=== PATIENT | male | born 1990 | race Caucasian/White ===

== ENCOUNTER 2021-01-24 21:42 | Inpatient (IN) | payer OTHER ==
[~2021-01-24] VITALS: Ht 180.3 cm; Wt 79.4 kg
--- NOTE | 2021-01-24 22:25 | NUR ---
PT BIBS C/O HEMATURIA AND BILAT FLANK PAIN X 1.5 HRS AGO, PT ADMITS TO HX OF KIDNEY STONES. AAO X 4, BREATHING EVEN AND UNLABORED, SATURATION 99% ON ROOM AIR, NO SIGN OF ACUTE DISTRESS. SEEN AND EXAMINED BY DR REBOLLAR. PT ATTACHED TO MONITOR AND PULSE OX. WILL CONTINUE TO MONITOR.
[2021-01-24] MEDS ORDERED: IV NS 0.9% 1,000 ML BAG IV ONE (22:30)
[2021-01-24] MEDS ORDERED: KETOROLAC TROMETHAMINE INJ 30 MG/ML VIAL IV ONE (22:30)
[2021-01-24] MEDS ORDERED: ONDANSETRON HCL/PF 4 MG/2 ML VIAL IVP ONE (22:30)
--- NOTE | 2021-01-24 22:30 | NUR ---
IV LINE ESTABLISHED AT RAC 20G, BLOOD DRAWN AND SENT TO LAB
[2021-01-24] MEDS ORDERED: KETOROLAC TROMETHAMINE 15 MG/ML VIAL ONE (22:44)
[2021-01-24] MEDS ORDERED: ONDANSETRON HCL/PF 4 MG/2 ML VIAL ONE (22:45)
[2021-01-24 22:58] LABS: BASOPHILS # (AUTO) 0.1 K/uL (0.0-0.2); BASOPHILS % (AUTO) 0.9 % (0.0-2.0); EOSINOPHILS % (AUTO) 1.2 % (0.0-6.0); HEMATOCRIT 47 % (39-51); HEMOGLOBIN 15.7 g/dL (13.5-17.5); LYMPHOCYTES # (AUTO) 2.9 K/uL (0.8-4.8); LYMPHOCYTES % (AUTO) 28.3 % (20.0-44.0); MEAN CORPUSCULAR HGB CONC 34 g/dl (31.0-36.0); MEAN CORPUSCULAR VOLUME 91 fL (80-96); MONOCYTES # (AUTO) 0.9 K/uL (0.1-1.30); NEUTROPHILS # (AUTO) 6.1 K/uL (1.8-8.9); NEUTROPHILS % (AUTO) 60.6 % (43.0-81.0); PLATELET COUNT (AUTO) 222 K/uL (150-450); WHITE BLOOD COUNT (AUTO) 10.1 K/uL (4.3-11.0)
--- NOTE | 2021-01-24 23:00 | NUR ---
PT TAKEN TO RADIOLOGY FOR CT ABDOMEN/PELVIS
[2021-01-24 23:02] LABS: BILIRUBIN,URINE Negative (NEGATIVE); COLOR,URINE DARK YELLOW (YELLOW); LEUKOCYTE ESTERASE ,URINE Negative (NEGATIVE); NITRITE, URINE Negative (NEGATIVE); PROTEIN,URINE Trace mg/dl (NEGATIVE); UGLUCOSE Negative (NEGATIVE)
[2021-01-24 23:07] LABS: BACTERIA,URINE Rare /HPF (None Seen); SQUAMOUS EPITHELIAL CELL,UR Few /HPF (None Seen); WBC,URINE NONE SEEN /HPF (0-3)
--- NOTE | 2021-01-24 23:08 | NUR ---
PT BACK TO BED [address] ABD PELVIS
[2021-01-24 23:14] LABS: CALCIUM, SERUM 8.3 mg/dL (8.5-10.1); CREATININE 1.2 mg/dL (0.6-1.3); POTASSIUM 3.7 mmol/L (3.5-5.1)
[2021-01-24 23:27] LABS: BILIRUBIN,DIRECT 0.1 mg/dL (0.0-0.2); BILIRUBIN,TOTAL 0.4 mg/dL (0.2-1.0); TOTAL PROTEIN, SERUM 7.4 g/dL (6.4-8.2)
--- NOTE | 2021-01-24 23:35 | NUR ---
CT ABD/PELVIS RESULTED, DR REBOLLAR AT BEDSIDE AND EXPLAINED PLAN FOR SX TOMORROW. AWAITING ADMISSION TO UNIT.
[2021-01-25] MEDS ORDERED: PIPERACILLIN /TAZOBACTAM 3.375 G VIAL IV ONE ×2 (00:01→06:13)
[2021-01-25] MEDS ORDERED: IV D5/0.45 NACL 1,000 ML IV PRN (00:30)
[2021-01-25] MEDS ORDERED: ONDANSETRON HCL/PF 4 MG/2 ML VIAL IVP PRN (00:30)
[2021-01-25] MEDS ORDERED: MAGNESIUM HYDROXIDE 30 ML UDC PO PRN (00:30)
[2021-01-25] MEDS ORDERED: MORPHINE SULFATE INJ 2 MG/ML DISP.SYRIN IV PRN (00:30)
[2021-01-25] MEDS ORDERED: Z GUARD REMEDY 2 OZ OINT TP PRN (00:30)
[2021-01-25] MEDS ORDERED: MAG HYDROX/AL HYDROX/SIMETH 30 ML UDC PO PRN (00:30)
[2021-01-25] MEDS ORDERED: ACETAMINOPHEN 325 MG TABLET PO PRN (00:30)
--- NOTE | 2021-01-25 01:02 | NUR ---
MS 324-2
--- NOTE | 2021-01-25 02:06 | NUR ---
REPORT GIVEN TO JUAN MARTINEZ FOR [facility].
--- NOTE | 2021-01-25 03:27 | NUR ---
PT TRANSFERRED TO [facility] 324-2 VIA [facility].
--- NOTE | 2021-01-25 03:30 | NUR ---
MS RN OPENING NOTES: RECEIVED PATIENT FROM ER VIA GURNEY AWAKE, VERBALLY RESPONSIVE, NO COMPLAIN OF PAIN AND DISCOMFORT AT ANYTIME, PATIENT IS A/O X4 AND ABLE TO EXPRESS NEEDS, NPO FOR POSSIBLE APPENDECTOMY, WITH RAC #20, SKIN ASSESSMENT DONE, NO SKIN ISSUES OBSERVED, ITEM INVENTORY DONE AND SIGNED, PATIENT WAS PLACE IN BED ON LOW POSITION, CALL LIGHTS WITHIN REACH, ORIENTED TO PLACE, KEPT CLEn ND DRY, ALL NEEDS MET, WILL CONTINUE TO MONITOR.
[2021-01-25 04:41] VITALS: BP 141/74
[2021-01-25] MEDS ORDERED: PIPERACILLIN /TAZOBACTAM 3.375 G in IV D5W 50 ML IV ONE ×3 (06:00→06:30)
[2021-01-25 06:26] LABS: BASOPHILS % (AUTO) 0.5 % (0.0-2.0); EOSINOPHILS % (AUTO) 1.1 % (0.0-6.0); HEMATOCRIT 43 % (39-51); HEMOGLOBIN 14.9 g/dL (13.5-17.5); LYMPHOCYTES % (AUTO) 23.4 % (20.0-44.0); MEAN CORPUSCULAR HGB CONC 34 g/dl (31.0-36.0); MEAN CORPUSCULAR VOLUME 91 fL (80-96); MONOCYTES # (AUTO) 0.7 K/uL (0.1-1.30); MONOCYTES % (AUTO) 8.3 % (2.0-12.0); NEUTROPHILS # (AUTO) 5.8 K/uL (1.8-8.9); NEUTROPHILS % (AUTO) 66.7 % (43.0-81.0); PLATELET COUNT (AUTO) 193 K/uL (150-450); RED BLOOD CELL COUNT(AUTO) 4.76 MIL/uL (4.5-6.0); WHITE BLOOD COUNT (AUTO) 8.7 K/uL (4.3-11.0)
[2021-01-25 07:09] LABS: CALCIUM, SERUM 8.2 mg/dL (8.5-10.1); CREATININE 1.3 mg/dL (0.6-1.3); MAGNESIUM 2.2 mg/dL (1.8-2.4); PHOSPHORUS 3.9 mg/dL (2.5-4.9); POTASSIUM 4.2 mmol/L (3.5-5.1)
[2021-01-25 07:23] LABS: THYROID STIMULATING HORMONE 1.55 uIU/mL (0.358-3.74)
--- NOTE | 2021-01-25 07:48 | NUR ---
RN NOTES: DUPLICATE GIVEN ALREADY
--- NOTE | 2021-01-25 07:51 | NUR ---
MS RN CLOSING NOTES: PATIENT SLEEP IN BED COMFORTABLY, AROUSABLE TO STIMULI, BED IN LOW POSITIO, CALL LIGHTS WITHIN REACH, NPO FOR POSSIBLE SURGERY PATIENT KEPT CLEAN AND DRY ,ALL NEEDS MET, WILL CONTINUE TO MONITOR.
--- NOTE | 2021-01-25 08:00 | NUR ---
RN OPENING NOTE PT AWAKE IN BED RESTING. ON RA WITH NO SOB OR RESPIRATORY DISTRESS PRESENT. A/O X4 AND PORTUGUES[place] SPEAKING. NO COMPLAINT OR NAUSEA OR PAIN AT THIS TIME. NO SWITCH FOREMAN PRESENT. NO EDEMA PRESENT. SELF AMBULATORY WITH BATHROOM PRIVILEGES. SKIN IS INTACT. IV PRESENT ON R AC 20G AND FLUSHES WELL. LABS AND ORDERS REVIEWED. SAFETY MEASURES IN PLACE. SIDE RAILS RAISED. BED LOWERED. CALL LIGHT WITHIN REACH. WILL CONTINUE TO MONITOR.
[2021-01-25] MEDS ORDERED: PANTOPRAZOLE 40 MG VIAL IV SCH (09:00)
[2021-01-25] MEDS ORDERED: ANESTHESIA TRAY IN PYXIS 1 EA TRAY MC ONE (09:08)
[2021-01-25] MEDS ORDERED: BUPIVACAINE MPF 0.5% W/EPI INJ 30 ML VIAL ONE (09:08)
[2021-01-25] MEDS ORDERED: MIDAZOLAM HCL 2 MG/2ML VIAL ONE (09:44)
[2021-01-25] MEDS ORDERED: FENTANYL PF 250MCG/5ML AMPUL ONE (09:44)
[2021-01-25] MEDS ORDERED: ROCURONIUM BROMIDE 50 MG/5 ML ONE (09:45)
[2021-01-25] MEDS ORDERED: PIPERACILLIN /TAZOBACTAM 3.375 G in IV D5W 50 ML IV SCH (12:00)
[2021-01-25] MEDS ORDERED: AMOX-430 PO (12:15)
[2021-01-25] MEDS ORDERED: HYDROCODONE/APAP 5/325MG TABLET PO PRN (13:00)
[2021-01-25] MEDS ORDERED: PIPERACILLIN /TAZOBACTAM 3.375 G in IV D5W 100 ML IV SCH (13:00)
--- NOTE | 2021-01-25 13:11 | NUR ---
RN NOTE PT REFUSED ZOSYN, WANTS TO GO HOME RATHER THAN WAIT FOR INFUSION. EDUCATED ON RISKS/BENEFITS OF REFUSING MEDICATION. WILL BE DISCHARGED TODAY.
--- NOTE | 2021-01-25 13:23 | NUR ---
CHIEF INFORMATICS OFFICER NOTE PT DISCHARGED HOME VIA PRIVATE CAR ACCOMPANIED BY SIGNIFICANT OTHER. ID BAND AND IV LINES REMOVED. SKIN IS INTACT. BELONGINGS CHECKED AND GIVEN TO PT. EXITCARE EDUCATION UTILIZED AND EDUCATION GIVEN TO PT. F/U WITH PCP AND DR PENA IN 1 WEEK. PRESCRIPTIONS GIVEN TO PT, MEDICINE EDUCATION GIVEN TO PT. ACCOMPANIED BY STAFF MEMBER OUTSIDE OF HOSPITAL.
== END 2021-01-25 13:20 | disposition home or self-care (01) | DRG 343 ==
LOC: ER 21:42 → MED 01-25 01:20
PROVIDERS: ADMIT Registered Nurse; ATTEND Hospitalist
PROC: 0DTJ4ZZ Resection of Appendix, Percutaneous Endoscopic Approach (ICD-10-PCS; principal; 2021-01-25)
DX: K35.80 Unspecified acute appendicitis (principal); Z20.822 Contact with and (suspected) exposure to COVID-19; Z87.442 Personal history of urinary calculi
CPT/HCPCS: 36415; 80048-TC; 80061-TC; 80076-TC; 81001; 83690-TC; 83735-TC; 84100-TC; 84443-TC; 85025-TC; 86850-TC; 87040-TC; 87081-TC; C9113; C9803; G0378; J0690; J1885; J2250; J2405; J2543; J2704; J2765; J3010; J3490; J7030; J7060

== ENCOUNTER 2023-02-13 20:29 | Emergency (ER) | payer OTHER ==
[~2023-02-13] VITALS: Ht 180.3 cm; Wt 81.6 kg
[~2023-02-13 20:29] MED LIST: AMOX-430 PO
[2023-02-13] MEDS ORDERED: AMOX-430 PO (21:05)
[2023-02-13] MEDS ORDERED: TDAP [DIPH/PERTUSSIS/TET] 0.5 ML VIAL IM ONE ×2 (21:08→21:30)
[2023-02-13] MEDS ORDERED: AMOX/CLAVULANATE 875 MG TABLET ONE (21:08)
[2023-02-13 21:22] VITALS: BP 115/60; TEMP 98.5; O2SAT 97
[2023-02-13] MEDS ORDERED: AMOX/CLAVULANATE 875 MG TABLET PO ONE (21:30)
== END 2023-02-13 21:22 | disposition home or self-care (01) ==
LOC: ER 20:31
DX: S81.851A Open bite, right lower leg, initial encounter (principal); Z79.899 Other long term (current) drug therapy; W54.0XXA Bitten by dog, initial encounter; Y93.89 Activity, other specified; Y92.89 Other specified places as the place of occurrence of the external cause; Y99.8 Other external cause status
CPT/HCPCS: 90715